=== PATIENT | female | born 1955 | race Caucasian/White ===

== ENCOUNTER 2021-10-07 14:32 | Inpatient (IN) | payer OTHER, MEDICARE ==
[~2021-10-07] VITALS: Ht 165.1 cm; Wt 113.4 kg
[2021-10-07] MEDS ORDERED: FUROSEMIDE 40MG/4ML VIAL IVP SCH (19:00)
[2021-10-07 19:46] LABS: BASOPHILS % 0.5 % (0.0-2.0); EOSINOPHILS % 1.7 % (0.0-5.0); HEMATOCRIT. 35.1 % (36.0-48.0); HEMOGLOBIN. 10.9 g/dL (12.0-16.0); MEAN CORPUSCULAR HEMOGLOBIN 23.7 pg (28.0-32.0); MEAN CORPUSCULAR VOLUME 76.2 fL (81.0-99.0); MEAN PLATELET VOLUME 8.3 fl (7.4-10.4); MONOCYTES % 6.9 % (2.0-8.0); NEUTROPHILS % 74.9 % (40.0-76.0); PLATELET 306 x1000/uL (130-400); RED CELL DISTRIBUTION WIDTH 17.8 % (11.6-14.6)
[2021-10-07 19:51] LABS: CHLORIDE 103 mEq/L (98-107)
[2021-10-07 20:01] LABS: T4 FREE 1.08 ng/dL (0.76-1.46)
[2021-10-07] MEDS ORDERED: ACETAMINOPHEN 325MG TABLET PO PRN ×2 (23:15)
[2021-10-07] MEDS ORDERED: ONDANSETRON HCL 4MG/2ML INJ IV PRN (23:15)
[2021-10-07] MEDS ORDERED: DOCUSATE SODIUM 100MG CAPSULE PO PRN (23:15)
[2021-10-07] MEDS ORDERED: MAGNESIUM/ALUMINUM HYDROXIDE/SIMETHICONE 30ML UDC PO PRN (23:15)
[2021-10-07] MEDS ORDERED: TRAMADOL 50MG TABLET PO PRN (23:15)
[2021-10-07] MEDS ORDERED: CLONIDINE 0.1MG TABLET PO PRN (23:15)
[2021-10-07] MEDS ORDERED: IPRATROPIUM/ALBUTEROL 0.5-3(2.5)MG/3ML NEB NEB PRN (23:15)
[2021-10-07] MEDS ORDERED: GUAIFENESIN 200MG/10ML SUGAR FREE UDC PO PRN (23:15)
[2021-10-07] MEDS ORDERED: NITROGLYCERIN 0.4MG TABLET SL SL PRN (23:15)
[2021-10-08] VITALS (8 sets, daily range): BP systolic 105–182; BP diastolic 42–78
[2021-10-08] MEDS: DILTIAZEM HCL 60MG TABLET PO SCH ×4 (00:06→17:37)
[2021-10-08 01:12] LABS: ETHANOL BLOOD < 10 mg/dL; TOTAL IRON BINDING CAPACITY 474 ug/dL (250-450)
[2021-10-08] MEDS: ZOLPIDEM TARTRATE 5MG TABLET PO PRN (01:29)
[2021-10-08 01:34] LABS: FOLIC ACID (FOLATE) SERUM 7.7 ng/mL (>5.38)
[2021-10-08] MEDS ORDERED: CYAN50003 PO (02:32)
[2021-10-08] MEDS ORDERED: GINS250C10 PO (02:32)
[2021-10-08] MEDS ORDERED: LISI2.5T47 PO (02:32)
[2021-10-08] MEDS ORDERED: CHOL400D7 PO (02:32)
[2021-10-08] MEDS ORDERED: FURO-152 PO (02:32)
[2021-10-08] MEDS ORDERED: VIT1LOZE5 (02:32)
[2021-10-08 07:21] LABS: BASOPHILS % 0.4 % (0.0-2.0); EOSINOPHILS % 1.2 % (0.0-5.0); HEMATOCRIT. 32.8 % (36.0-48.0); LYMPHOCYTES % 12.5 % (20.0-50.0); MEAN CORPUSCULAR HEMOGLOBIN 23.5 pg (28.0-32.0); MEAN CORPUSCULAR VOLUME 77.4 fL (81.0-99.0); MEAN PLATELET VOLUME 8.8 fl (7.4-10.4); MONOCYTES % 7.3 % (2.0-8.0); NEUTROPHILS % 78.6 % (40.0-76.0); PLATELET 339 x1000/uL (130-400); RED BLOOD CELL COUNT 4.24 mill/uL (4.2-5.4); RED CELL DISTRIBUTION WIDTH 18.1 % (11.6-14.6)
[2021-10-08] MEDS ORDERED: DEXTROSE 50% WATER 50ML SYRINGE IV PRN (07:30)
[2021-10-08 07:50] LABS: CHLORIDE 103 mEq/L (98-107)
[2021-10-08 07:57] LABS: PHOSPHORUS 4.8 mg/dL (2.5-4.9)
[2021-10-08 08:00] LABS: CREATINE KINASE 15 IU/L (26-192)
[2021-10-08 08:03] LABS: CREATINE KINASE MB FRACTION < 1.0 ng/mL (0.5-3.6)
[2021-10-08] MEDS ORDERED: CEFTRIAXONE 1 G PREMIX 50 ML IV SCH (09:00)
[2021-10-08] MEDS: ASCORBIC ACID 500 MG TABLET PO SCH ×2 (09:12→21:21)
[2021-10-08] MEDS: SPIRONOLACTONE 25MG TABLET PO SCH ×2 (09:12→21:21)
[2021-10-08] MEDS: FAMOTIDINE 20MG TABLET PO SCH (09:12)
[2021-10-08] MEDS: ZINC SULFATE 220 MG ( 50 ) CAPSULE PO SCH (09:12)
[2021-10-08] MEDS: ASPIRIN 325MG EC TABLET PO SCH (09:13)
[2021-10-08] MEDS: METHYLPREDNISOLONE SOD SUCC 125 MG/2 ML VIAL IV SCH ×2 (09:13→13:04)
[2021-10-08] MEDS: FUROSEMIDE 40MG/4ML VIAL IVP SCH ×2 (09:13→21:21)
[2021-10-08] MEDS: ENOXAPARIN 30MG/0.3ML SYR SUBCUT SCH ×2 (09:20→21:21)
[2021-10-08] MEDS: INSULIN LISPRO 100 UNITS/ML SUBCUT SCH ×4 (09:21→21:22)
[2021-10-08] MEDS: IPRATROPIUM/ALBUTEROL 0.5-3(2.5)MG/3ML NEB HHN SCH ×4 (10:19→20:48)
[2021-10-08] MEDS: CEFTRIAXONE 1,000 MG in DEXTROSE 5% WATER 50 ML IV SCH (10:44)
[2021-10-08] MEDS: AZITHROMYCIN 500 MG in DEXT 5% WATER 250 ML IV SCH (10:44)
[2021-10-08] MEDS: INSULIN GLARGINE UD 100 UNITS/ML SYR SUBCUT SCH (10:45)
[2021-10-08 11:00] LABS: BG BASE EXCESS 3.6 mmol/L (-2.0-2.0); BG CARBOXYHEMOGLOBIN 1.6 % (0.5-1.5); BG DEOXYHEMOGLOBIN 9.9 % (0.0-5.0); BG FRACTION INSPIRED OXYGEN 44; BG HCO3 ACT 33.5 mmol/L (22.0-26.0); BG METHEMOGLOBIN 0.3 % (0.0-1.5); BG OXYGEN SATURATION 89.9 % (92.0-98.5); BG OXYHEMOGLOBIN 88.2 % (94.0-97.0); BG PCO2 85.4 mmHg (35.0-45.0); BG PH 7.212 (7.350-7.450); BG PO2 67.1 mmHg (75.0-100.0); BG SAMPLE SITE RIGHT RADIAL; BG TOTAL HEMOGLOBIN 11.1 g/dL (12.0-18.0); BG VENT MODE NASAL CANNULA
[2021-10-08] MEDS: BLOOD SUGAR DIAGNOSTIC STRIP TEST SCH ×3 (13:04→21:00)
[2021-10-08 15:47] LABS: CREATINE KINASE 13 IU/L (26-192)
[2021-10-08 15:48] LABS: CREATINE KINASE MB FRACTION < 1.0 ng/mL (0.5-3.6)
[2021-10-08] MEDS: METHYLPREDNISOLONE SOD SUCC 40 MG/ML VIAL IV SCH (21:20)
[2021-10-08 22:42] LABS: BG BASE EXCESS 4.8 mmol/L (-2.0-2.0); BG CARBOXYHEMOGLOBIN 1.1 % (0.5-1.5); BG DEOXYHEMOGLOBIN 7.4 % (0.0-5.0); BG FRACTION INSPIRED OXYGEN 60; BG HCO3 ACT 35.1 mmol/L (22.0-26.0); BG METHEMOGLOBIN 0.4 % (0.0-1.5); BG OXYGEN SATURATION 92.5 % (92.0-98.5); BG OXYHEMOGLOBIN 91.1 % (94.0-97.0); BG PCO2 91.7 mmHg (35.0-45.0); BG PH 7.201 (7.350-7.450); BG SAMPLE SITE RIGHT RADIAL; BG VENT MODE MASK - BIPAP
[2021-10-09] VITALS (12 sets, daily range): BP systolic 102–135; BP diastolic 42–76
[2021-10-09 01:09] LABS: BG BASE EXCESS 4.4 mmol/L (-2.0-2.0); BG CARBOXYHEMOGLOBIN 0.8 % (0.5-1.5); BG DEOXYHEMOGLOBIN 7.8 % (0.0-5.0); BG FRACTION INSPIRED OXYGEN 60; BG HCO3 ACT 33.7 mmol/L (22.0-26.0); BG METHEMOGLOBIN 0.3 % (0.0-1.5); BG OXYGEN SATURATION 92.1 % (92.0-98.5); BG OXYHEMOGLOBIN 91.1 % (94.0-97.0); BG PCO2 80.8 mmHg (35.0-45.0); BG PH 7.238 (7.350-7.450); BG PO2 70.3 mmHg (75.0-100.0); BG SAMPLE SITE RIGHT RADIAL; BG TOTAL HEMOGLOBIN 10.8 g/dL (12.0-18.0); BG VENT MODE MASK - BIPAP
[2021-10-09] MEDS: IPRATROPIUM/ALBUTEROL 0.5-3(2.5)MG/3ML NEB HHN SCH ×5 (02:34→20:06)
[2021-10-09] MEDS: DILTIAZEM HCL 60MG TABLET PO SCH ×4 (06:00→18:18)
[2021-10-09] MEDS: METHYLPREDNISOLONE SOD SUCC 40 MG/ML VIAL IV SCH ×3 (06:23→20:47)
[2021-10-09] MEDS: BLOOD SUGAR DIAGNOSTIC STRIP TEST SCH ×4 (06:24→20:48)
[2021-10-09 06:54] LABS: HEMATOCRIT. 31.5 % (36.0-48.0); HEMOGLOBIN. 9.6 g/dL (12.0-16.0); MEAN CORPUSCULAR HEMOGLOBIN 23.4 pg (28.0-32.0); MEAN CORPUSCULAR VOLUME 76.4 fL (81.0-99.0); MEAN PLATELET VOLUME 8.9 fl (7.4-10.4); PLATELET 293 x1000/uL (130-400); RED BLOOD CELL COUNT 4.13 mill/uL (4.2-5.4); RED CELL DISTRIBUTION WIDTH 17.8 % (11.6-14.6)
[2021-10-09 07:01] LABS: CLARITY URINE CLOUDY (CLEAR); COLOR URINE YELLOW (YELLOW); KETONES URINE NEGATIVE (NEGATIVE); LEUKOCYTE ESTERASE URINE 1+ (NEGATIVE); NITRITE URINE NEGATIVE (NEGATIVE); OCCULT BLOOD URINE NEGATIVE (NEGATIVE); PROTEIN URINE 1+ (NEGATIVE); SPECIFIC GRAVITY URINE 1.016 (1.005-1.030); UROBILINOGEN URINE 0.2 E.U./dL (0.2-1.0)
[2021-10-09] MEDS: INSULIN LISPRO 100 UNITS/ML SUBCUT SCH ×5 (07:20→20:47)
[2021-10-09 07:59] LABS: CHLORIDE 99 mEq/L (98-107)
[2021-10-09 08:13] LABS: PHOSPHORUS 5.2 mg/dL (2.5-4.9)
[2021-10-09 08:24] LABS: LDL CHOLESTEROL 63 mg/dL (5-100)
[2021-10-09 08:26] LABS: HDL CHOLESTEROL 46 mg/dL (40-59)
[2021-10-09] MEDS: ENOXAPARIN 30MG/0.3ML SYR SUBCUT SCH ×2 (09:03→20:47)
[2021-10-09] MEDS: ZINC SULFATE 220 MG ( 50 ) CAPSULE PO SCH (09:04)
[2021-10-09] MEDS: FAMOTIDINE 20MG TABLET PO SCH (09:04)
[2021-10-09] MEDS: ASPIRIN 325MG EC TABLET PO SCH (09:04)
[2021-10-09] MEDS: ASCORBIC ACID 500 MG TABLET PO SCH ×2 (09:04→20:47)
[2021-10-09] MEDS: SPIRONOLACTONE 25MG TABLET PO SCH ×2 (09:04→20:47)
[2021-10-09] MEDS: FUROSEMIDE 40MG/4ML VIAL IVP SCH ×2 (09:04→20:46)
[2021-10-09] MEDS: INSULIN GLARGINE UD 100 UNITS/ML SYR SUBCUT SCH ×2 (10:00→12:57)
[2021-10-09] MEDS: CEFTRIAXONE 1,000 MG in DEXTROSE 5% WATER 50 ML IV SCH (10:24)
[2021-10-09 11:04] LABS: PLATELET ESTIMATE NORMAL
[2021-10-09 11:40] LABS: BG BASE EXCESS 1.9 mmol/L (-2.0-2.0); BG CARBOXYHEMOGLOBIN 0.4 % (0.5-1.5); BG DEOXYHEMOGLOBIN 0.8 % (0.0-5.0); BG HCO3 ACT 29.9 mmol/L (22.0-26.0); BG METHEMOGLOBIN 0.1 % (0.0-1.5); BG OXYGEN SATURATION 99.2 % (92.0-98.5); BG OXYHEMOGLOBIN 98.7 % (94.0-97.0); BG PCO2 65.9 mmHg (35.0-45.0); BG PH 7.275 (7.350-7.450); BG PO2 187.9 mmHg (75.0-100.0); BG SAMPLE SITE LEFT RADIAL; BG TOTAL HEMOGLOBIN 10.9 g/dL (12.0-18.0); BG VENT MODE MASK - BIPAP
[2021-10-09] MEDS: AZITHROMYCIN 500 MG in DEXT 5% WATER 250 ML IV SCH (11:54)
[2021-10-10] VITALS (12 sets, daily range): BP systolic 118–149; BP diastolic 65–125
[2021-10-10] MEDS: ZOLPIDEM TARTRATE 5MG TABLET PO PRN ×2 (00:02→21:25)
[2021-10-10] MEDS: DILTIAZEM HCL 60MG TABLET PO SCH ×4 (00:06→17:58)
[2021-10-10] MEDS: IPRATROPIUM/ALBUTEROL 0.5-3(2.5)MG/3ML NEB HHN SCH ×5 (01:33→21:49)
[2021-10-10] MEDS: BLOOD SUGAR DIAGNOSTIC STRIP TEST SCH ×4 (06:19→21:18)
[2021-10-10] MEDS: METHYLPREDNISOLONE SOD SUCC 40 MG/ML VIAL IV SCH ×3 (06:19→21:17)
[2021-10-10] MEDS: FUROSEMIDE 40MG/4ML VIAL IVP SCH ×2 (09:18→21:18)
[2021-10-10] MEDS: FAMOTIDINE 20MG TABLET PO SCH (09:19)
[2021-10-10] MEDS: ENOXAPARIN 30MG/0.3ML SYR SUBCUT SCH ×2 (09:19→21:18)
[2021-10-10] MEDS: ASPIRIN 325MG EC TABLET PO SCH (09:19)
[2021-10-10] MEDS: CEFTRIAXONE 1,000 MG in DEXTROSE 5% WATER 50 ML IV SCH (09:19)
[2021-10-10] MEDS: ASCORBIC ACID 500 MG TABLET PO SCH ×2 (09:19→21:18)
[2021-10-10] MEDS: SPIRONOLACTONE 25MG TABLET PO SCH ×2 (09:19→21:20)
[2021-10-10] MEDS: ZINC SULFATE 220 MG ( 50 ) CAPSULE PO SCH (09:19)
[2021-10-10] MEDS: INSULIN LISPRO 100 UNITS/ML SUBCUT SCH ×4 (09:20→21:24)
[2021-10-10 10:11] LABS: BG CARBOXYHEMOGLOBIN 0.3 % (0.5-1.5); BG DEOXYHEMOGLOBIN 16.9 % (0.0-5.0); BG HCO3 ACT 31.6 mmol/L (22.0-26.0); BG METHEMOGLOBIN 0.3 % (0.0-1.5); BG OXYHEMOGLOBIN 82.5 % (94.0-97.0); BG PCO2 56.9 mmHg (35.0-45.0); BG PH 7.363 (7.350-7.450); BG PO2 50.2 mmHg (75.0-100.0); BG SAMPLE SITE RIGHT RADIAL; BG TOTAL HEMOGLOBIN 11.1 g/dL (12.0-18.0); BG VENT MODE ROOM AIR
[2021-10-10] MEDS: AZITHROMYCIN 500 MG in DEXT 5% WATER 250 ML IV SCH (10:42)
[2021-10-10] MEDS: INSULIN GLARGINE UD 100 UNITS/ML SYR SUBCUT SCH (10:43)
[2021-10-11] VITALS (10 sets, daily range): BP systolic 110–147; BP diastolic 51–81
[2021-10-11] MEDS: DILTIAZEM HCL 60MG TABLET PO SCH ×5 (00:03→23:38)
[2021-10-11] MEDS: IPRATROPIUM/ALBUTEROL 0.5-3(2.5)MG/3ML NEB HHN SCH ×4 (03:06→20:41)
[2021-10-11] MEDS: BLOOD SUGAR DIAGNOSTIC STRIP TEST SCH ×4 (05:54→21:00)
[2021-10-11] MEDS: INSULIN LISPRO 100 UNITS/ML SUBCUT SCH ×7 (06:00→21:10)
[2021-10-11] MEDS: ASCORBIC ACID 500 MG TABLET PO SCH ×2 (08:41→21:08)
[2021-10-11] MEDS: ZINC SULFATE 220 MG ( 50 ) CAPSULE PO SCH (08:41)
[2021-10-11] MEDS: ASPIRIN 325MG EC TABLET PO SCH (08:41)
[2021-10-11] MEDS: FAMOTIDINE 20MG TABLET PO SCH (08:41)
[2021-10-11] MEDS: METHYLPREDNISOLONE SOD SUCC 40 MG/ML VIAL IV SCH ×2 (08:41→21:08)
[2021-10-11] MEDS: FUROSEMIDE 40MG/4ML VIAL IVP SCH ×2 (08:41→21:08)
[2021-10-11] MEDS: SPIRONOLACTONE 25MG TABLET PO SCH ×2 (08:42→21:09)
[2021-10-11] MEDS: ENOXAPARIN 30MG/0.3ML SYR SUBCUT SCH ×2 (08:42→21:08)
[2021-10-11] MEDS: CEFTRIAXONE 1,000 MG in DEXTROSE 5% WATER 50 ML IV SCH (08:44)
[2021-10-11] MEDS: AZITHROMYCIN 500 MG in DEXT 5% WATER 250 ML IV SCH (09:24)
[2021-10-11] MEDS: INSULIN GLARGINE UD 100 UNITS/ML SYR SUBCUT SCH (09:31)
[2021-10-11] MEDS ORDERED: NALOXONE HCL 0.4MG/ML VIAL IV PRN (15:30)
[2021-10-12] VITALS (12 sets, daily range): BP systolic 115–165; BP diastolic 57–86
[2021-10-12] MEDS: ZOLPIDEM TARTRATE 5MG TABLET PO PRN ×2 (01:55→20:33)
[2021-10-12] MEDS: BLOOD SUGAR DIAGNOSTIC STRIP TEST SCH ×4 (06:38→20:38)
[2021-10-12] MEDS: DILTIAZEM HCL 60MG TABLET PO SCH ×3 (06:38→18:13)
[2021-10-12] MEDS: IPRATROPIUM/ALBUTEROL 0.5-3(2.5)MG/3ML NEB HHN SCH ×5 (07:41→20:00)
[2021-10-12] MEDS: FUROSEMIDE 40MG/4ML VIAL IVP SCH ×2 (09:18→20:37)
[2021-10-12] MEDS: ENOXAPARIN 30MG/0.3ML SYR SUBCUT SCH ×2 (09:19→20:37)
[2021-10-12] MEDS: INSULIN LISPRO 100 UNITS/ML SUBCUT SCH ×7 (09:21→20:38)
[2021-10-12] MEDS: PREDNISONE 20MG TABLET PO SCH (09:24)
[2021-10-12] MEDS: ASPIRIN 325MG EC TABLET PO SCH (09:24)
[2021-10-12] MEDS: SPIRONOLACTONE 25MG TABLET PO SCH ×2 (09:24→20:37)
[2021-10-12] MEDS: CEFTRIAXONE 1,000 MG in DEXTROSE 5% WATER 50 ML IV SCH (09:24)
[2021-10-12] MEDS: FAMOTIDINE 20MG TABLET PO SCH (09:24)
[2021-10-12] MEDS: AZITHROMYCIN 500 MG TABLET PO SCH (09:25)
[2021-10-12] MEDS: ASCORBIC ACID 500 MG TABLET PO SCH ×2 (09:25→20:34)
[2021-10-12] MEDS: ZINC SULFATE 220 MG ( 50 ) CAPSULE PO SCH (09:25)
[2021-10-12] MEDS ORDERED: FURO-151 PO (12:16)
[2021-10-12] MEDS ORDERED: AZIT500T3 MT (12:16)
[2021-10-12] MEDS: INSULIN GLARGINE UD 100 UNITS/ML SYR SUBCUT SCH (13:28)
[2021-10-13] VITALS (10 sets, daily range): BP systolic 95–131; BP diastolic 49–78
[2021-10-13] MEDS: DILTIAZEM HCL 60MG TABLET PO SCH ×4 (00:38→17:08)
[2021-10-13] MEDS: IPRATROPIUM/ALBUTEROL 0.5-3(2.5)MG/3ML NEB HHN SCH ×5 (04:00→21:40)
[2021-10-13] MEDS: INSULIN LISPRO 100 UNITS/ML SUBCUT SCH ×7 (06:01→21:00)
[2021-10-13] MEDS: BLOOD SUGAR DIAGNOSTIC STRIP TEST SCH ×4 (06:01→21:18)
[2021-10-13] MEDS: CEFTRIAXONE 1,000 MG in DEXTROSE 5% WATER 50 ML IV SCH (08:45)
[2021-10-13] MEDS: ZINC SULFATE 220 MG ( 50 ) CAPSULE PO SCH (08:45)
[2021-10-13] MEDS: ASPIRIN 325MG EC TABLET PO SCH ×2 (08:45→13:41)
[2021-10-13] MEDS: SPIRONOLACTONE 25MG TABLET PO SCH ×2 (08:45→21:20)
[2021-10-13] MEDS: ASCORBIC ACID 500 MG TABLET PO SCH ×2 (08:46→21:16)
[2021-10-13] MEDS: FAMOTIDINE 20MG TABLET PO SCH (08:46)
[2021-10-13] MEDS: PREDNISONE 20MG TABLET PO SCH (08:46)
[2021-10-13] MEDS: AZITHROMYCIN 500 MG TABLET PO SCH (08:49)
[2021-10-13] MEDS: ENOXAPARIN 30MG/0.3ML SYR SUBCUT SCH ×2 (08:49→21:18)
[2021-10-13] MEDS: FUROSEMIDE 40MG/4ML VIAL IVP SCH ×2 (09:39→21:15)
[2021-10-13] MEDS: INSULIN GLARGINE UD 100 UNITS/ML SYR SUBCUT SCH (11:32)
[2021-10-14] VITALS: BP 118/53
[2021-10-14] MEDS: DILTIAZEM HCL 60MG TABLET PO SCH ×3 (00:32→12:00)
[2021-10-14] MEDS: IPRATROPIUM/ALBUTEROL 0.5-3(2.5)MG/3ML NEB HHN SCH ×2 (01:25→04:00)
[2021-10-14] MEDS: INSULIN LISPRO 100 UNITS/ML SUBCUT SCH ×4 (05:59→12:20)
[2021-10-14] MEDS: BLOOD SUGAR DIAGNOSTIC STRIP TEST SCH ×2 (05:59→11:50)
[2021-10-14 06:00] VITALS: BP 121/69
[2021-10-14 07:43] VITALS: BP 119/57
[2021-10-14] MEDS: ASCORBIC ACID 500 MG TABLET PO SCH (08:01)
[2021-10-14] MEDS: ASPIRIN 325MG EC TABLET PO SCH (08:01)
[2021-10-14] MEDS: FUROSEMIDE 40MG/4ML VIAL IVP SCH (08:01)
[2021-10-14] MEDS: ZINC SULFATE 220 MG ( 50 ) CAPSULE PO SCH (08:01)
[2021-10-14] MEDS: PREDNISONE 20MG TABLET PO SCH (08:01)
[2021-10-14] MEDS: FAMOTIDINE 20MG TABLET PO SCH (08:01)
[2021-10-14] MEDS: ENOXAPARIN 30MG/0.3ML SYR SUBCUT SCH (08:02)
[2021-10-14 09:51] VITALS: BP 115/57
[2021-10-14] MEDS: INSULIN GLARGINE UD 100 UNITS/ML SYR SUBCUT SCH (10:00)
[2021-10-14] MEDS ORDERED: SPIRONOLACTONE 25MG TABLET PO SCH (10:00)
== END 2021-10-14 16:05 | disposition home or self-care (01) | DRG 291 ==
LOC: ER 14:54 → EDBEDREQ 18:56 → 6WST 21:57 → EDBEDREQ 22:03 → EDBEDREQTM 22:03 → ENRESERV 23:46 → 3WST 10-08 18:39
PROVIDERS: ADMIT Psychiatry & Neurology Neurology; ATTEND Internal Medicine
PROC: 5A09457 Assistance with Respiratory Ventilation, 24-96 Consecutive Hours, Continuous Positive Airway Pressure (ICD-10-PCS; principal; 2021-10-08)
PROC: 5A09357 Assistance with Respiratory Ventilation, Less than 24 Consecutive Hours, Continuous Positive Airway Pressure (ICD-10-PCS; 2021-10-11)
PROC: 5A09357 Assistance with Respiratory Ventilation, Less than 24 Consecutive Hours, Continuous Positive Airway Pressure (ICD-10-PCS; 2021-10-12)
PROC: 5A09357 Assistance with Respiratory Ventilation, Less than 24 Consecutive Hours, Continuous Positive Airway Pressure (ICD-10-PCS; 2021-10-14)
DX: I11.0 Hypertensive heart disease with heart failure (principal); J96.01 Acute respiratory failure with hypoxia; N17.0 Acute kidney failure with tubular necrosis; I50.33 Acute on chronic diastolic (congestive) heart failure; J96.02 Acute respiratory failure with hypercapnia; J44.1 Chronic obstructive pulmonary disease with (acute) exacerbation; E44.0 Moderate protein-calorie malnutrition; E66.2 Morbid (severe) obesity with alveolar hypoventilation; Z68.41 Body mass index [BMI] 40.0-44.9, adult; Z20.822 Contact with and (suspected) exposure to COVID-19; D63.8 Anemia in other chronic diseases classified elsewhere; E11.65 Type 2 diabetes mellitus with hyperglycemia; Z99.81 Dependence on supplemental oxygen; Z79.4 Long term (current) use of insulin; Z91.19 Patient's noncompliance with other medical treatment and regimen
CPT/HCPCS: 36415; 36600; 71045; 80053; 80061; 80320; 81003; 82375; 82550; 82553; 82607; 82746; 82805; 82962; 83036; 83540; 83550; 83735; 83880; 84100; 84439; 84443; 84484; 85025; 87426; 93005; 93306; 93970; 94640; 94660; 99285; J0456; J0696; J1650; J1815; J1940; J2920; J2930; J7040; J7060; J7512; U0003; U0005; G0480